=== PATIENT | female | born 1975 | race American Indian/Alaskan Native ===

== ENCOUNTER 2017-05-28 22:29 | Emergency (ER) | payer OTHER, MEDICAID ==
--- NOTE | 2017-05-29 01:48 | XRay Report ---
FINAL REPORT PROCEDURE: XR KNEE 1-2V LT TECHNIQUE: LEFT knee radiographs, AP and lateral views. CPT 82202 HISTORY: Left knee pain COMPARISON: No prior studies are available for comparison. FINDINGS: Fracture (s) and/or Dislocation(s): None . Alignment: Normal . Joint space(s): Normal . Soft tissues: Normal . Bone mineralization: Normal . Foreign bodies: None . IMPRESSION: Normal Examination.
--- NOTE | 2017-05-29 04:12 | XRay Report ---
FINAL REPORT PROCEDURE: XR SPINE CERVICAL 2-3V TECHNIQUE: Cervical spine radiographs, minimum of four views, including AP, lateral and bilateral oblique projections. HISTORY: neck pain COMPARISON: No prior studies are available for comparison. FINDINGS: Prevertebral soft tissues: Normal. Alignment: Normal. Vertebral body heights/Disk spaces: Normal. Fracture(s): None. Neural foramina: Normal. Facets: Normal. Bone mineralization: Normal. IMPRESSION: Normal Examination.
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
[2017-05-29] MEDS ORDERED: FLEXERIL PO ONE (06:37)
[2017-05-29] MEDS ORDERED: PERCOCET 5/325 PO ONE (06:37)
[2017-05-29 08:07] VITALS: BP 125/57
== END 2017-05-29 08:08 | disposition home or self-care (01) ==
LOC: ED 22:29
DX: M54.2 Cervicalgia (principal); M79.1 Myalgia; M25.562 Pain in left knee; R07.89 Other chest pain; V49.59XA Passenger injured in collision with other motor vehicles in traffic accident, initial encounter; Y93.9 Activity, unspecified; Y92.9 Unspecified place or not applicable; Y99.9 Unspecified external cause status
CPT/HCPCS: 72040

== ENCOUNTER 2019-11-26 23:57 | Emergency (ER) | payer MEDICAID ==
[2019-11-27] MEDS ORDERED: SODIUM CHLORIDE 0.9% 1000 ML 1,000 ML IV ONE (03:17)
[2019-11-27] MEDS ORDERED: FAMOTIDINE 20 MG/2 ML INJ IV ONE (03:17)
[2019-11-27] MEDS ORDERED: diphenhydrAMINE 50 MG/ML VIAL IV ONE (03:17)
[2019-11-27] MEDS ORDERED: dexAMETHasone 20 MG/5 ML VIAL IV ONE (03:17)
--- NOTE | 2019-11-27 04:14 | Emergency Department Report ---
ED General Adult HPI - General Chief complaint: Allergic Reaction Stated complaint: POSS ALLERGIC REACTION/L FACIAL SWELLING Time Seen by Provider: 11/27/19 03:07 Source: patient Mode of arrival: Ambulatory Limitations: No Limitations - History of Present Illness Initial comments: Patient is a 43-year-old female who presents emergency room with complaints of left-sided facial edema that began just prior to arrival. She states that the face also feels like it is tingling. She states that she cooked at home and ate steak, baked potato, salad and toast and went to sleep and then she woke up with the facial swelling. She denies eating anything different. She denies any known allergies at all. She denies any shortness of breath, throat swelling, sensation of throat closing, difficulty breathing, dental pain. She does not take any daily medications. She denies any past medical history. - Related Data Previous Rx's Medication Instructions Recorded Last Taken Type Cyclobenzaprine [Flexeril] 10 mg PO TID PRN #15 tablet 05/29/17 Unknown Rx Ibuprofen [Motrin] 600 mg PO Q8H PRN #15 tablet 05/29/17 Unknown Rx Acetaminophen/Codeine [Tylenol 1 tab PO Q6H PRN #7 tab 11/27/19 Unknown Rx /Codeine # 3 tab] Clindamycin [Clindamycin CAP] 450 mg PO TID 7 Days #63 capsule 11/27/19 Unknown Rx Prednisone [predniSONE 10 mg 10 mg PO .TAPER #1 tab.ds.pk 11/27/19 Unknown Rx (6-Day Pack, 21 Tabs)] diphenhydrAMINE [Benadryl CAP] 50 mg PO Q8HR PRN #14 capsule 11/27/19 Unknown Rx Allergies Allergy/AdvReac Type Severity Reaction Status Date / Time No Known Allergies Allergy Unverified 05/28/17 22:44 ED Review of Systems ROS: Stated complaint: POSS ALLERGIC REACTION/L FACIAL SWELLING Other details as noted in HPI Comment: All other systems reviewed and negative ED Past Medical Hx - Past Medical History Previous Medical History?: No - Surgical History Past Surgical History?: No - Social History Smoking Status: Never Smoker - Medications Home Medications: Home Medications Medication Instructions Recorded Confirmed Last Taken Type Cyclobenzaprine [Flexeril] 10 mg PO TID PRN #15 tablet 09/23/17 Unknown Rx Ibuprofen [Motrin] 600 mg PO Q8H PRN #15 tablet 05/29/17 Unknown Rx Acetaminophen/Codeine [Tylenol 1 tab PO Q6H PRN #7 tab 11/27/19 Unknown Rx /Codeine # 3 tab] Clindamycin [Clindamycin CAP] 450 mg PO TID 7 Days #63 capsule 11/27/19 Unknown Rx Prednisone [predniSONE 10 mg 10 mg PO .TAPER #1 tab.ds.pk 11/27/19 Unknown Rx (6-Day Pack, 21 Tabs)] diphenhydrAMINE [Benadryl CAP] 50 mg PO Q8HR PRN #14 capsule 11/27/19 Unknown Rx ED Physical Exam - General Limitations: No Limitations General appearance: alert, in no apparent distress - Head Head exam: Present: atraumatic, normocephalic - Eye Eye exam: Present: normal appearance - ENT ENT exam: Present: normal orophraynx, mucous membranes moist, other (Tenderness to palpation of the left side of the face with edema present, edema present to the left upper lip only on the left side, subcutaneous emphysema present to the left face and neck, airway is intact) - Neck Neck exam: Present: other (ttp, edema, and subcutaneous emphysema to the left side of the neck) - Respiratory Respiratory exam: Present: normal lung sounds bilaterally. Absent: respiratory distress, wheezes, rales, rhonchi, stridor, chest wall tenderness, accessory muscle use, decreased breath sounds, prolonged expiratory - Cardiovascular Cardiovascular Exam: Present: regular rate, normal rhythm, normal heart sounds. Absent: systolic murmur, diastolic murmur, rubs, gallop - Neurological Exam Neurological exam: Present: alert, oriented X3, CN II-XII intact, normal gait. Absent: motor sensory deficit - Psychiatric Psychiatric exam: Present: normal affect, normal mood - Skin Skin exam: Present: warm, dry, intact ED Course Vital Signs 11/27/19 00:15 Temperature 98.7 F Pulse Rate 68 Respiratory 18 Rate Blood Pressure 122/76 O2 Sat by Pulse 98 Oximetry ED Medical Decision Making - Lab Data Result diagrams: 11/27/19 03:39 11/27/19 03:39 Lab Results 11/27/19 11/27/19 11/27/19 Range/Units 03:39 03:39 03:50 WBC 6.4 (4.5-11.0) K/mm3 RBC 4.29 (3.65-5.03) M/mm3 Hgb 9.5 L (10.1-14.3) gm/dl Hct 31.4 (30.3-42.9) % MCV 73 L (79-97) fl MCH 22 L (28-32) pg MCHC 30 (30-34) % RDW 16.4 H (13.2-15.2) % Plt Count 377 (140-440) K/mm3 Lymph % (Auto) 35.2 H (13.4-35.0) % Miner % (Auto) 7.5 H (0.0-7.3) % Eos % (Auto) 3.0 (0.0-4.3) % Baso % (Auto) 0.4 (0.0-1.8) % Lymph # 2.3 (1.2-5.4) K/mm3 Miner # 0.5 (0.0-0.8) K/mm3 Eos # 0.2 (0.0-0.4) K/mm3 Baso # 0.0 (0.0-0.1) K/mm3 Seg Neutrophils % 53.9 (40.0-70.0) % Seg Neutrophils # 3.5 (1.8-7.7) K/mm3 Sodium 136 L (137-145) mmol/L Potassium 3.5 L (3.6-5.0) mmol/L Chloride 99.8 (98-107) mmol/L Carbon Dioxide 25 (22-30) mmol/L Anion Gap 15 mmol/L BUN 10 (7-17) mg/dL Creatinine 0.6 L (0.7-1.2) mg/dL Estimated GFR > 60 ml/min BUN/Creatinine Ratio 17 % Glucose 88 (65-100) mg/dL Calcium 9.0 (8.4-10.2) mg/dL HCG, Qual Negative (Negative) - Radiology Data Radiology results: report reviewed CT facial bones with contrast Dictated by Steve Ray MD Negative CT of the facial bones CT neck with contrast Dictated by John Almaguer MD 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 Subtle adjacent interstitial edema seen, which may be related to cellulitis. No evidence of abscess appreciated - Medical Decision Making Patient is a 43-year-old female who presents emergency room with complaints of left-sided facial edema that began just prior to arrival. She states that the face also feels like it is tingling. She states that she cooked at home and ate steak, baked potato, salad and toast and went to sleep and then she woke up with the facial swelling. She denies eating anything different. She denies any known allergies at all. She denies any shortness of breath, throat swelling, sensation of throat closing, difficulty breathing, dental pain. She does not take any daily medications. She denies any past medical history. After examination of patient and findings of subcutaneous emphysema, immediately went to consult with Dr. Curtis, ER attending who evaluated patient at bedside and recommended a CT with IV contrast of the facial bones and neck. CT facial bones: Negative CT of the facial bones. 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 Subtle adjacent interstitial edema seen, which may be related to cellulitis. No evidence of abscess appreciated. Vitals are normal. Labs are stable. hCG is negative. Patient given 1 L IV fluids, dexamethasone, Pepcid, Benadryl. Facial swelling could be secondary to dental infection. Patient gi radu prescription for clindamycin, steroids, Benadryl, Tylenol with codeine. Patient states that she was feeling much better and states that she feels like the swelling is starting to improve. advised please take medication as prescribed. Do not drive or operate heavy machinery while taking pain me dication. Follow-up with a primary care doctor. Follow-up with a dentist. Return to the emergency room for any new or worsening symptoms. discussed strict return precautions with patient - Differential Diagnosis Angioedema, allergic reaction, sinusitis, maxillary abscess, dental abscess Critical care attestation.: If time is entered above; I have spent that time in minutes in the direct care of this critically ill patient, excluding procedure time. ED Disposition Clinical Impression: Dental caries, Facial swelling Cellulitis Qualifiers: Site of cellulitis: face Qualified Code(s): L03.211 - Cellulitis of face Disposition: - TO HOME OR SELFCARE Is pt being admited?: No Does the pt Need Aspirin: No Condition: Stable Instructions: Dental Abscess (ED), Dental Caries (ED), Cellulitis (ED) Additional Instructions: please take medication as prescribed. Do not drive or operate heavy machinery while taking pain medication. Follow-up with a primary care doctor. Follow-up with a dentist. Return to the emergency room for any new or worsening symptoms. Prescriptions: diphenhydrAMINE [Benadryl CAP] 50 mg PO Q8HR PRN #14 capsule PRN Reason: facial swelling Clindamycin [Clindamycin CAP] 450 mg PO TID 7 Days #63 capsule Prednisone [predniSONE 10 mg (6-Day Pack, 21 Tabs)] 10 mg PO .TAPER #1 tab.ds.pk Acetaminophen/Codeine [Tylenol /Codeine # 3 tab] 1 tab PO Q6H PRN #7 tab PRN Reason: pain Referrals: PRIMARY CARE,MD [Primary Care Provider] - 3-5 Days [facility] [Outside] - 3-5 Days [facility] [Outside] - 3-5 Days Time of Disposition: 06:36 Print Language: [place] CITIZEN
[2019-11-27 04:26] LABS: Basophils % (Auto) 0.4 % (0.0-1.8); Eosinophils # (Auto) 0.2 K/mm3 (0.0-0.4); Lymphocytes # (Auto) 2.3 K/mm3 (1.2-5.4); Lymphocytes % (Auto) 35.2 % (13.4-35.0); Mean Corpuscular HGB Conc 30 % (30-34); Mean Corpuscular Volume 73 fl (79-97); Monocytes # (Auto) 0.5 K/mm3 (0.0-0.8); Monocytes % (Auto) 7.5 % (0.0-7.3); Platelet Count 377 K/mm3 (140-440); Red Blood Count 4.29 M/mm3 (3.65-5.03); Red Cell Distribution Width 16.4 % (13.2-15.2)
[2019-11-27 04:33] LABS: Hematocrit 31.4 % (30.3-42.9); Hemoglobin 9.5 gm/dl (10.1-14.3)
[2019-11-27 04:35] LABS: BUN/Creatinine Ratio 17; Blood Urea Nitrogen 10 mg/dL (7-17); Hemolysis Index 4
--- NOTE | 2019-11-27 05:53 | Cat Scan Report ---
CT facial bones w con INDICATION / CLINICAL INFORMATION: Left facial and neck swelling and tender to palpations x 1 day, subcutaneous emphysema Omnipaque 300 / 100ml's was used for this exam.. TECHNIQUE: All CT scans at this location are performed using CT dose reduction for ALARA by means of automated e xposure control. COMPARISON: None available. FINDINGS: The paranasal sinuses are clear. No fracture is seen. No soft tissue edema is identified. No drainabl e fluid collection is present. No subcutaneous emphysema is identified IMPRESSION: Negative CT of the facial bones Signer Name: Steve Ray MD FACR Signed: 11/27/2019 5:49 AM Workstation Name: [id number]
--- NOTE | 2019-11-27 06:33 | Cat Scan Report ---
CT neck w con INDICATION / CLINICAL INFORMATION: 43 years Female; Left facial and neck swelling and tender to palpations x 1 day, subcutaneous emphys waylon Omnipaque 300 / 100ml's was used for this exam.. TECHNIQUE: Contiguous thin cut axial images obtained through the neck following IV contrast. Sagittal and garcia l reconstructions performed by the technologist. All CT scans at this location are performed using CT dose reduction for ALARA by means of automated exposure control. COMPARISON: None available. FINDINGS: There is periapical lucency along the roots of the first molar along the left mandibular al veolar ridge. The crown of that tooth is absent. Some degree of subtle adjacent cellulitic process is suspected, although no signs of underlying abscess are appreciated. This may be the source for patie nt's symptomatology. MUCOSAL SPACE: The nasopharynx, oropharynx and vallecula, oral cavity and floor of mouth, hypopharynx , and larynx are grossly normal. Parapharyngeal and retropharyngeal spaces are grossly normal. LYMPH NODES: Mildly prominent lymph nodes are seen, which are reactive. No signs of suppurative node appreciated. SALIVARY GLANDS: Parotid, submandibular, and visualized sublingual glands are within normal limits. THYROID GLAND: Unremarkable. PARANASAL SINUSES: Visualized paranasal sinuses and mastoid air cells are essentially clear. SPINE: No significant abnormality of the cervical spine appreciated. VASCULAR STRUCTURES: Vascular structures are grossly normal in appearance. Surrounding soft tissues are otherwise grossly normal. IMPRESSION: 1. 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 Subtle adjacent interstitial edema seen, which may be related to cellulitis. No evidence of abscess apprecia paty. Signer Name: John Almaguer MD, III Signed: 11/27/2019 6:29 AM Workstation Name: [id number]
[2019-11-27 06:53] VITALS: BP 120/76
== END 2019-11-27 06:54 | disposition home or self-care (01) ==
LOC: ED 23:57
DX: L03.211 Cellulitis of face (principal); R22.0 Localized swelling, mass and lump, head; K02.9 Dental caries, unspecified
CPT/HCPCS: 36415; 70487; 70491; 80048; 84703; 85025; 96374; 96375; 99284; J1100; J1200; J7030; Q9967

== ENCOUNTER 2022-03-23 13:35 | Emergency (ER) | payer MEDICAID ==
[2022-03-23 13:43] VITALS: BP 121/84
--- NOTE | 2022-03-23 19:51 | Emergency Department Report ---
Abscess Boil HPI - HPI Chief Complaint: Skin/Abscess/Foreign Body Stated Complaint: LOWER BACK AND AB PAIN Time Seen by Provider: 03/23/22 19:50 Duration: 4 Days Location: Sacral/Pilonidal Severity: Moderate History: Yes Pain, No Fever, No Purulent Drainage, No Numbness, No Foreign Body, No Previous History, No Insect Bite HPI: 46-year-old female presents to the emergency room with pain to the gluteal fold x 4 days. Patient denies history of cyst/abscess. Patient states she tried BC and ibuprofen with no improvement of symptoms. Patient states pain is so unbearable she haven't been able to sit. Home Medications: Previous Rx's Medication Instructions Recorded Last Taken Type Cyclobenzaprine [Flexeril] 10 mg PO TID PRN #15 tablet 05/29/17 Unknown Rx Acetaminophen/Codeine [Tylenol 1 tab PO Q6H PRN #7 tab 11/27/19 Unknown Rx /Codeine # 3 tab] Clindamycin [Clindamycin CAP] 450 mg PO TID 7 Days #63 capsule 11/27/19 Unknown Rx Prednisone [predniSONE 10 mg 10 mg PO .TAPER #1 tab.ds.pk 11/27/19 Unknown Rx (6-Day Pack, 21 Tabs)] diphenhydrAMINE [Benadryl CAP] 50 mg PO Q8HR PRN #14 capsule 11/27/19 Unknown Rx Ketorolac [Toradol] 10 mg PO Q6H PRN #15 tablet 03/22/20 Unknown Rx methOCARBAMOL [Robaxin] 750 mg PO Q8H PRN #21 tablet 03/22/20 Unknown Rx Acetaminophen/Codeine [Tylenol 1 tab PO Q6H PRN #12 tab 03/23/22 Unknown Rx /Codeine # 3 tab] Ibuprofen [Motrin 600 MG tab] 600 mg PO Q8H PRN #15 tablet 03/23/22 Unknown Rx Sulfamethoxazole/Trimethoprim 1 each PO BID #20 tab 03/23/22 Unknown Rx [Bactrim DS TAB] Allergies/Adverse Reactions: Allergies Allergy/AdvReac Type Severity Reaction Status Date / Time No Known Allergies Allergy Unverified 05/28/17 22:44 ED Review of Systems ROS: Stated complaint: LOWER BACK AND AB PAIN Other details as noted in HPI Constitutional: denies: chills, fever Respiratory: denies: cough, shortness of breath, wheezing Cardiovascular: denies: chest pain, palpitations Skin: other (abscess of glueteal cleft). denies: rash, lesions Neurological: denies: headache, weakness, paresthesias Psychiatric: denies: anxiety, depression ED Past Medical Hx - Past Medical History Previous Medical History?: No - Surgical History Past Surgical History?: No - Social History Smoking Status: Never Smoker - Medications Home Medications: Home Medications Medication Instructions Recorded Confirmed Last Taken Type Cyclobenzaprine [Flexeril] 10 mg PO TID PRN #15 tablet 05/29/17 Unknown Rx Acetaminophen/Codeine [Tylenol 1 tab PO Q6H PRN #7 tab 11/27/19 Unknown Rx /Codeine # 3 tab] Clindamycin [Clindamycin CAP] 450 mg PO TID 7 Days #63 capsule 11/27/19 Unknown Rx Prednisone [predniSONE 10 mg 10 mg PO .TAPER #1 tab.ds.pk 11/27/19 Unknown Rx (6-Day Pack, 21 Tabs)] diphenhydrAMINE [Benadryl CAP] 50 mg PO Q8HR PRN #14 capsule 11/27/19 Unknown Rx Ketorolac [Toradol] 10 mg PO Q6H PRN #15 tablet 03/22/20 Unknown Rx methOCARBAMOL [Robaxin] 750 mg PO Q8H PRN #21 tablet 03/22/20 Unknown Rx Acetaminophen/Codeine [Tylenol 1 tab PO Q6H PRN #12 tab 03/23/22 Unknown Rx /Codeine # 3 tab] Ibuprofen [Motrin 600 MG tab] 600 mg PO Q8H PRN #15 tablet 03/23/22 Unknown Rx Sulfamethoxazole/Trimethoprim 1 each PO BID #20 tab 03/23/22 Unknown Rx [Bactrim DS TAB] ED Abscess Boil Physical Exam - Exam General: Vital signs noted. No distress. Alert and acting appropriately. Front/Back of Body, Lg (Color): 1 - 3 cm nonfluctuant indurated midline gluteal fold, tender to palpation, erythematous, no discharge Size: 3 cm Exam: Yes Tenderness, Yes Surrounding Cellulites/Erythema, Yes Normal Neurologic Exam, Yes Normal Circulation, No Fluctuance, No Lymphangitis, No Crepitation, No Heart Murmur ED Course Vital Signs 03/23/22 13:37 Temperature 98.9 F Pulse Rate 86 Respiratory 18 Rate Blood Pressure 121/84 O2 Sat by Pulse 99 Oximetry Critical care attestation.: If time is entered above; I have spent that time in minutes in the direct care of this critically ill patient, excluding procedure time. ED Medical Decision Making - Medical Decision Making Patient presents with swelling and pain to glueteal fold x4 days. No history of prior abscess. Patient is stable and examined by me. Physical assessment of 3 cm non fluctuance indurated area to glueteal fold. I&D not indicated at this time. No acute signs of distress noted. Discussed plan to start bactrim DS and ibuprofen with patient. Educated patient on follow up plan. Referral to dermatology and PCP. Patient agrees to ED plan of care. Discharged home and follow up with PCP in 2-3 days. ED Disposition Clinical Impression: Gluteal pain, Pilonidal cyst without abscess Disposition: HOME / SELF CARE / HOMELESS Is pt being admited?: No Condition: Stable Instructions: Pilonidal Cyst Prescriptions: Sulfamethoxazole/Trimethoprim [Bactrim DS TAB] 1 each PO BID #20 tab Ibuprofen [Motrin 600 MG tab] 600 mg PO Q8H PRN #15 tablet PRN Reason: Pain Acetaminophen/Codeine [Tylenol /Codeine # 3 tab] 1 tab PO Q6H PRN #12 tab PRN Reason: Pain , Severe (7-10) Referrals: [facility] [Provider Group] - 3-5 Days ROSINA BALTAZAR MD [Staff Physician] - 3-5 Days Forms: Work/School Release Form(ED) Time of Disposition: 20:05
== END 2022-03-23 21:00 | disposition home or self-care (01) ==
LOC: ED 13:35
DX: L05.91 Pilonidal cyst without abscess (principal); R10.9 Unspecified abdominal pain
CPT/HCPCS: 99282